=== PATIENT | female | born 1945 | race Caucasian/White ===

== ENCOUNTER 2019-03-25 04:17 | Emergency (ER) | payer OTHER ==
[~2019-03-25] VITALS: Ht 152.4 cm; Wt 55.8 kg
--- NOTE | 2019-03-25 04:17 | NUR ---
Pt placed to ER room 5 with grand daughter. Per grand daughter, pt woke up around 00:30 pacing, hyperventilating and stressing about upcoming glaucoma sx. Pt states with pressured speech "I don't want to go blind." Pt appears anxious, hyperventilating, mumbling "no, no, no" and pacing about room. Unable to obtain V/S at this time. Daughter at bedside attempting to reassure pt and calm her down. Addendum: 03/25/19 at 0503 by SDEDAJ Pt denies SI/HI, denies A/V hallucinations.
--- NOTE | 2019-03-25 04:30 | NUR ---
Dr. Sparks at bedside.
--- NOTE | 2019-03-25 04:40 | NUR ---
Pt non-compliant with medical regimen. Dr. Sparks notified. Pt to be given Ativan for anxiety.
[2019-03-25] MEDS ORDERED: LORazepam 2 MG/ML VIAL IVP ONE (04:45)
[2019-03-25] MEDS ORDERED: LORazepam 2 MG/ML VIAL IM ONE (05:00)
--- NOTE | 2019-03-25 05:05 | NUR ---
Pt lying in bed with grandaughter at side. Pt continues to state "no, no...please, I don't want to go blind."
[2019-03-25] MEDS ORDERED: LORazepam 2 MG/ML VIAL ONE (05:12)
--- NOTE | 2019-03-25 05:25 | NUR ---
Pt AAOx4, calm and cooperative demeanor, respirations even and non-labored, VSS. Pt at bedside.
--- NOTE | 2019-03-25 05:30 | NUR ---
# 20 gauge angiocath placed to RAC. Use of asceptic technique. Opsite placed over site. Blood return noted. Blood for lab drawn from site. Flushed with 10 cc of normal saline. No evidence of infiltration noted. Patient tolerated well.
[2019-03-25 05:56] LABS: BASOPHILS # (AUTO) 0.1 K/uL (0.0-0.2); BASOPHILS % (AUTO) 0.7 % (0.0-2.0); EOSINOPHILS # (AUTO) 0.2 K/uL (0.0-0.4); EOSINOPHILS % (AUTO) 2.2 % (0.0-4.0); HEMATOCRIT 38.7 % (36-48); HEMOGLOBIN 13.4 g/dL (12.0-16.0); LYMPHOCYTES # (AUTO) 3.1 K/uL (1.0-5.5); LYMPHOCYTES % (AUTO) 33.2 % (20.5-51.5); MEAN CORPUSCULAR HEMOGLOBIN 33 pg (27-31); MEAN CORPUSCULAR HGB CONC 35 % (32-36); MEAN CORPUSCULAR VOLUME 96 fL (79.0-98.0); MONOCYTES # (AUTO) 0.6 K/uL (0.0-1.0); MONOCYTES % (AUTO) 6.2 % (1.7-9.3); NEUTROPHILS # (AUTO) 5.3 K/uL (1.8-7.7); NEUTROPHILS % (AUTO) 57.7 % (40.0-70.0); PLATELET COUNT (AUTO) 295 K/uL (130-430); RED BLOOD CELL COUNT(AUTO) 4.05 MIL/uL (4.2-6.2); RED CELL DISTRIBUTION WIDTH 13.3 % (9.0-15.0); WHITE BLOOD COUNT (AUTO) 9.2 K/uL (4.8-10.8)
--- NOTE | 2019-03-25 06:00 | NUR ---
X-ray at bedside.
[2019-03-25 06:07] LABS: ANION GAP 8 (5-15); CALCIUM 9.2 mg/dL (8.4-11.0); CHLORIDE 106 mmol/L (98-107); GLUCOSE 88 mg/dL (70-99); POTASSIUM 3.8 mmol/L (3.5-5.1); SODIUM SERUM 138 mmol/L (136-145); UREA NITROGEN, BLOOD 29 mg/dL (8-21)
--- NOTE | 2019-03-25 06:10 | NUR ---
B/P 95/43, HR 98. Dr. Sparks notified. IVFs to be administered.
[2019-03-25] MEDS ORDERED: NS 500 ML IV ONE (06:15)
[2019-03-25 06:21] LABS: ALANINE AMINOTRANSFERASE 24 U/L (12-78); ALBUMIN 3.9 g/dL (3.4-4.8); ASPARTATE AMINOTRANSFERASE 25 U/L (10-37); TOTAL BILIRUBIN 0.4 mg/dL (0.0-1.0)
[2019-03-25 06:23] LABS: ALCOHOL, BLOOD < 3 mg/dL (<10)
[2019-03-25 06:24] LABS: ACETAMINOPHEN < 1 ug/mL (1-30)
--- NOTE | 2019-03-25 06:49 | NUR ---
Pt to CT in stable condition. Pt continues to be calm and cooperative, VSS.
[2019-03-25] MEDS ORDERED: IOHEXOL 350 mgI/mL, 150 ML INFUS..BTL IV ONE (06:52)
--- NOTE | 2019-03-25 07:05 | NUR ---
Pt returns from CT. No needs verbalized, VSS.
--- NOTE | 2019-03-25 07:10 | NUR ---
report received from Jasmeet BOSTON.
[2019-03-25 07:19] LABS: BILIRUBIN,URINE NEGATIVE (NEGATIVE); BLOOD, URINE NEGATIVE (NEGATIVE); CLARITY/URINE CLEAR (CLEAR); COLOR,URINE YELLOW (YELLOW); GLUCOSE,URINE NEGATIVE (NEGATIVE); KETONES,URINE TRACE (NEGATIVE); LEUKOCYTE ESTERASE ,URINE 1+ (NEGATIVE); NITRITE, URINE NEGATIVE (NEGATIVE); PH,URINE 5.5 (5.0-8.0); PROTEIN URINE NEGATIVE (NEGATIVE); UROBILINOGEN,URINE 0.2 (0.2-1.0)
[2019-03-25 07:42] LABS: BARBITURATE, URINE NEGATIVE (NEG <=200); BENZODIAZEPINE, URINE NEGATIVE (NEG <=150); CANNABINOID, URINE NEGATIVE (NEG <=50); COCAINE, URINE NEGATIVE (NEG <=150); METHAMPHETAMINES SCREEN,URINE NEGATIVE (NEG <=500); OPIATE, URINE NEGATIVE (NEG <=100); PHENCYCLIDINE SCREEN,URINE NEGATIVE (NEG <=25); UR TRICYCLIC ANTIDEPRESSANTS NEGATIVE (NEG <=300); URINE AMPHETAMINE NEGATIVE (NEG <=500); URINE METHADONE NEGATIVE (NEG <=200); URINE OXYCODONE SCREEN NEGATIVE (NEG <=100); URINE PROPOXYPHENE SCREEN NEGATIVE (NEG <=300)
--- NOTE | 2019-03-25 07:45 | NUR ---
repeat EKG done.
[2019-03-25 08:00] LABS: BACTERIA,URINE FEW /HPF (None Seen); MUCUS,URINE 1+ /LPF (None Seen); RBC,URINE 0-3 /HPF (0-3)
[2019-03-25 08:57] VITALS: BP_SYST 102
--- NOTE | 2019-03-25 08:59 | NUR ---
Patient given written and verbal discharge instructions and verbalizes understanding. ER MD discussed with patient the results and treatment provided. Patient in stable condition. ID arm band removed. IV catheter removed intact and dressing applied, no active bleeding. Rx of Ativan given. Patient educated on pain management and to follow up with PMD. Pain Scale 0/10. Opportunity for questions provided and answered. Medication side effect fact sheet provided.
== END 2019-03-25 08:59 | disposition home or self-care (01) ==
LOC: SED 04:17
DX: F41.9 Anxiety disorder, unspecified (principal); R06.00 Dyspnea, unspecified; R79.1 Abnormal coagulation profile; R07.89 Other chest pain
CPT/HCPCS: 36415; 71045; 71275; 80053; 80307; 81000; 82550; 83605; 83880; 84484; 85025; 85379; 85610; 85730; 87040; 87086; 93005; 96372; 99284; G0480; G0481; G0482; J2060; J7040; Q9967

== ENCOUNTER 2019-03-29 16:32 | Emergency (ER) | payer OTHER ==
[~2019-03-29] VITALS: Ht 149.9 cm; Wt 57.2 kg
[2019-03-29 17:00] VITALS: BP_SYST 142
--- NOTE | 2019-03-29 18:15 | NUR ---
Patient to ER bed 04 to gown for evaluation. Side rails up.
--- NOTE | 2019-03-29 18:45 | NUR ---
PT BIB FAMILY BECAUSE THEY ARE WORRIED ABOUT HER. PT HIT HEAD BACK IN JUNE 2018. SINCE THEN PT HAS BEEN HAVING INCREASED ANXIETY AND DEPRESSION. PT IN LAST WEEK HAS BEEN PROGRESSIVLEY WORST PER DAUGHTERS. PT DENIES HISTORY OF PSYCH AND NO SIEZURES SINCE SHE HIT HEAD. PT HAS BEEN EVALUATED BY PCP AND WANTED HER TO GO TO [place]. PT WENT BUT NO ADDMITED SO SEE THEM OUT PT SINCE SHE IS NOT SUICIDAL. PT HAS LOST 6 LB IN LAST WEEK PER FAMILY. PT HAD PANIC ATTACK TODAY. DAUGHTERS WORRIED. PT HAS NO SIGNS OF RESP DISTRESS. PT ROCKING IN BED, BITTING NAILS. WILL CONTINUE TO MONITOR.
--- NOTE | 2019-03-29 18:47 | NUR ---
ER Dr. YANG at bedside examining patient.
--- NOTE | 2019-03-29 19:18 | NUR ---
ENDORSED CARE TO DARVIN URIBE
[2019-03-29 19:37] LABS: BASOPHILS # (AUTO) 0.1 K/uL (0.0-0.2); BASOPHILS % (AUTO) 0.9 % (0.0-2.0); EOSINOPHILS # (AUTO) 0.2 K/uL (0.0-0.4); EOSINOPHILS % (AUTO) 1.8 % (0.0-4.0); HEMATOCRIT 40.5 % (36-48); HEMOGLOBIN 13.9 g/dL (12.0-16.0); LYMPHOCYTES # (AUTO) 3.5 K/uL (1.0-5.5); LYMPHOCYTES % (AUTO) 36.5 % (20.5-51.5); MEAN CORPUSCULAR HEMOGLOBIN 33 pg (27-31); MEAN CORPUSCULAR HGB CONC 34 % (32-36); MEAN CORPUSCULAR VOLUME 96 fL (79.0-98.0); MONOCYTES # (AUTO) 0.7 K/uL (0.0-1.0); MONOCYTES % (AUTO) 7.1 % (1.7-9.3); NEUTROPHILS # (AUTO) 5.2 K/uL (1.8-7.7); NEUTROPHILS % (AUTO) 53.7 % (40.0-70.0); PLATELET COUNT (AUTO) 334 K/uL (130-430); RED BLOOD CELL COUNT(AUTO) 4.24 MIL/uL (4.2-6.2); WHITE BLOOD COUNT (AUTO) 9.7 K/uL (4.8-10.8)
[2019-03-29 19:53] LABS: ANION GAP 8 (5-15); CALCIUM 9.4 mg/dL (8.4-11.0); CHLORIDE 102 mmol/L (98-107); CREATININE 0.62 mg/dL (0.55-1.30); GLUCOSE 86 mg/dL (70-99); POTASSIUM 3.9 mmol/L (3.5-5.1); SODIUM SERUM 136 mmol/L (136-145); UREA NITROGEN, BLOOD 19 mg/dL (8-21)
[2019-03-29 20:08] LABS: ALANINE AMINOTRANSFERASE 24 U/L (12-78); ALBUMIN 4.1 g/dL (3.4-4.8); ASPARTATE AMINOTRANSFERASE 22 U/L (10-37); FREE T4 (FREE THYROXINE) 0.9 ng/dl (0.8-1.5); THYROID STIMULATING HORMONE 0.77 uIu/mL (0.36-3.74); TOTAL BILIRUBIN 0.5 mg/dL (0.0-1.0)
--- NOTE | 2019-03-29 21:15 | NUR ---
Dr. Kingston bedside for Pt and family update
[2019-03-29] MEDS ORDERED: LORazepam 2 MG/ML VIAL IM ONE (21:30)
[2019-03-29 21:55] LABS: BILIRUBIN,URINE NEGATIVE (NEGATIVE); BLOOD, URINE NEGATIVE (NEGATIVE); CLARITY/URINE SL HAZY (CLEAR); COLOR,URINE YELLOW (YELLOW); GLUCOSE,URINE NEGATIVE (NEGATIVE); KETONES,URINE NEGATIVE (NEGATIVE); LEUKOCYTE ESTERASE ,URINE 3+ (NEGATIVE); NITRITE, URINE NEGATIVE (NEGATIVE); PROTEIN URINE NEGATIVE (NEGATIVE); UROBILINOGEN,URINE 0.2 (0.2-1.0)
[2019-03-29 22:54] LABS: BACTERIA,URINE FEW /HPF (None Seen); MUCUS,URINE 2+ /LPF (None Seen); RBC,URINE 0-3 /HPF (0-3)
[2019-03-29 23:40] VITALS: BP_SYST 138
--- NOTE | 2019-03-29 23:40 | NUR ---
Patient given written and verbal discharge instructions and verbalizes understanding. ER MD discussed with patient the results and treatment provided. Patient in stable condition. ID arm band removed. Rx of Macrobid given. Patient educated on pain management and to follow up with PMD. Pain Scale 0/10 Opportunity for questions provided and answered. Medication side effect fact sheet provided.
== END 2019-03-29 23:40 | disposition home or self-care (01) ==
LOC: SED 16:32
DX: F41.9 Anxiety disorder, unspecified (principal); N39.0 Urinary tract infection, site not specified
CPT/HCPCS: 36415; 70450; 80053; 81000; 83605; 84439; 84443; 85025; 87086; 99284; J2060